=== PATIENT | female | born 1970 | race Caucasian/White ===

== ENCOUNTER → 2016-10-08 | Outpatient (CLI) | payer OTHER ==
[~2016-10-08] MED LIST: ALDACTAZIDE 251 EACH PO; CHANTIX1 EACH PO; CLARITIN10 M2 PO; CYMBALTA60 MG PO; IBUPROFEN800 MG PO; KEFLEX500 MG PO; MS CONTIN15 MG PO; ROXICODONE TAB 55 MG PO; VITAMIN C 500500 MG PO; VITAMIN D250000 UNIT PO; ZANTAC150 MG PO; ZOFRAN4 MG PO
== END ==
LOC: KOH-I 15:12
DX: M66.371 Spontaneous rupture of flexor tendons, right ankle and foot (principal); M19.071 Primary osteoarthritis, right ankle and foot; M76.821 Posterior tibial tendinitis, right leg; R60.0 Localized edema; R93.7 Abnormal findings on diagnostic imaging of other parts of musculoskeletal system
CPT/HCPCS: 73718

== ENCOUNTER → 2016-12-16 | Outpatient (CLI) | payer OTHER ==
[2016-12-16 12:22] LABS: BUN/CREATININE RATIO 18 (0-10)
== END ==
LOC: OPSV2 12-12 09:30
PROVIDERS: Podiatrist Foot & Ankle Surgery
DX: Z01.812 Encounter for preprocedural laboratory examination (principal); M25.871 Other specified joint disorders, right ankle and foot
CPT/HCPCS: 36415; 80048

== ENCOUNTER → 2016-12-16 | Outpatient (CLI) | payer OTHER | LOC: KOH-I 11-04 16:30 | DX: I73.9 Peripheral vascular disease, unspecified (principal) | CPT/HCPCS: 93926 ==

== ENCOUNTER 2016-12-20 07:03 | Observation (INO) | payer OTHER ==
[~2016-12-20] VITALS: Ht 167.6 cm; Wt 119.8 kg
[2016-12-20 07:53] LABS: HEMOGLOBIN 14.1 gm/dl (12.3-15.3); RED BLOOD COUNT 4.74 M/UL (4.00-5.10); WHITE BLOOD COUNT 7.4 K/UL (4.5-11.0)
[2016-12-20] MEDS ORDERED: CYMBALTA60 MG PO (08:22)
[2016-12-20] MEDS ORDERED: ZANTAC150 MG PO (08:22)
[2016-12-20] MEDS ORDERED: ALDACTAZIDE 251 EACH PO (08:23)
[2016-12-20] MEDS ORDERED: CLARITIN10 M2 PO (08:23)
[2016-12-21] MEDS ORDERED: CHANTIX1 EACH PO (17:31)
[2016-12-21] MEDS ORDERED: ROXICODONE TAB 55 MG PO (17:31)
[2016-12-21] MEDS ORDERED: KEFLEX500 MG PO (17:33)
[2016-12-21] MEDS ORDERED: VITAMIN D250000 UNIT PO (17:33)
[2016-12-21] MEDS ORDERED: VITAMIN C 500500 MG PO (17:34)
[2016-12-21] MEDS ORDERED: ZOFRAN4 MG PO (17:35)
[2016-12-21] MEDS ORDERED: IBUPROFEN800 MG PO (17:35)
[2016-12-21] MEDS ORDERED: MS CONTIN15 MG PO (17:35)
== END 2016-12-21 18:05 | disposition home or self-care (01) ==
LOC: OR 07:03 → M/S 20:04 → OR 12-21 12:10 → M/S 12-21 12:14
PROVIDERS: Podiatrist Foot & Ankle Surgery; ADMIT Orthopaedic Surgery
PROC: 0L8N0ZZ Division of Right Lower Leg Tendon, Open Approach (ICD-10-PCS; 2016-12-20)
PROC: 0SGK07Z Fusion of Right Tarsometatarsal Joint with Autologous Tissue Substitute, Open Approach (ICD-10-PCS; principal; 2016-12-20 09:00)
PROC: 0QB20ZZ Excision of Right Pelvic Bone, Open Approach (ICD-10-PCS; 2016-12-20 09:00)
DX: M21.6X1 Other acquired deformities of right foot (principal); M19.071 Primary osteoarthritis, right ankle and foot; M25.374 Other instability, right foot; G89.29 Other chronic pain; K21.9 Gastro-esophageal reflux disease without esophagitis; G47.30 Sleep apnea, unspecified; Z79.899 Other long term (current) drug therapy; Z87.891 Personal history of nicotine dependence; Z88.0 Allergy status to penicillin
CPT/HCPCS: 36415; 73630; 73650; 76000; 85025; 96365; 96366; 96372; 96375; 96376; C1713; C1762; C1776; G0378; J1650; J1885; J2250; J2405; J2795; J3370; J7050; J7070; J7120

== ENCOUNTER 2020-07-12 16:23 | Emergency (ER) | payer OTHER ==
[~2020-07-12 16:23] MED LIST changes: +CELEXA40 MG PO; +CHANTIX0.5 MG PO; +CHANTIX1 MG PO; +CLEOCIN HCL300 MG PO; +DICLOFENAC GEL 1% TOP; +ENOXAPARIN40 MG/0.4 SC; +FLUTICASONE SPRAY; +HYDROCHLOROTHIA50 MG PO; +KLOR-CON 88 MEQ PO; +MELATONIN5 M5 PO; +MS CONTIN TAB S15 MG PO; +OMEPRAZOLE40 MG PO; +PERCOCET 10-321 EACH PO; +PERCOCET 5/325 T1 EA PO; +PHENERGAN 25 MG25 M1 PO; +VITAMIN C1000 MG PO; +VITAMIN D PO
[2020-07-12] MEDS ORDERED: PERCOCET 5-3251 EACH PO (21:10)
== END 2020-07-12 21:05 | disposition home or self-care (01) ==
LOC: ER1 16:23
DX: S92.422A Displaced fracture of distal phalanx of left great toe, initial encounter for closed fracture (principal); F17.210 Nicotine dependence, cigarettes, uncomplicated; Z23 Encounter for immunization; W20.8XXA Other cause of strike by thrown, projected or falling object, initial encounter; Y92.009 Unspecified place in unspecified non-institutional (private) residence as the place of occurrence of the external cause
CPT/HCPCS: 73630; 90471; 90715; 99283

== ENCOUNTER → 2020-08-01 | Outpatient (CLI) | payer OTHER ==
[~2020-08-01] MED LIST changes: +PERCOCET 5-3251 EACH PO
== END ==
LOC: KOH-I 15:16
DX: S92.422D Displaced fracture of distal phalanx of left great toe, subsequent encounter for fracture with routine healing (principal); Z96.698 Presence of other orthopedic joint implants; X58.XXXD Exposure to other specified factors, subsequent encounter
CPT/HCPCS: 73630